=== PATIENT | male | born 1960 | race Caucasian/White ===

== ENCOUNTER → 2018-10-19 08:14 | Outpatient (POV) | payer BC, SELFPAY | PROVIDERS: Visit Provider Dermatology | DX: Z00.00 Encounter for general adult medical examination without abnormal findings (principal) ==

== ENCOUNTER → 2019-02-18 22:29 | Outpatient (CLI) | payer BC, SELFPAY | PROVIDERS: PCP Internal Medicine Adolescent Medicine; Visit Provider Internal Medicine Adolescent Medicine | DX: G47.30 Sleep apnea, unspecified (principal); I10 Essential (primary) hypertension; R06.83 Snoring; E66.9 Obesity, unspecified | CPT/HCPCS: G0399 ==

== ENCOUNTER 2019-02-22 08:30 | Outpatient (RCR) | payer OTHER, BC, SELFPAY | END 2019-02-22 08:35 | disposition home or self-care (01) | LOC: PT 08:30 | PROVIDERS: Visit Provider Orthopaedic Surgery | DX: M25.571 Pain in right ankle and joints of right foot (principal); M19.072 Primary osteoarthritis, left ankle and foot; G89.29 Other chronic pain | CPT/HCPCS: 97010; 97014; 97110; 97112; 97163; 97164; G0283 ==

== ENCOUNTER 2020-06-29 15:07 | Emergency (ER) | payer OTHER, SELFPAY ==
[2020-06-29 15:29] VITALS: BP 141/102; PULSE 83; RESP 18; O2SAT 96; BMI 38.7
--- NOTE | 2020-06-29 15:41 | HMH.EDUTC ---
[facility] [place] [facility] Disposition Clinical Impression: Umbilical hernia Qualifiers: Obstruction and gangrene presence: without obstruction or gangrene Qualified Code(s): K42.9 - Umbilical hernia without obstruction or gangrene Disposition: Home, Self-Care Condition on Discharge: Good Instructions: Hernias: Causes and Treatment Options Additional Instructions: Follow up with the surgeon (Dr. Piper). I put in a referral but you need to call and make yourself an appointment. GO TO THE ER FOR ANY WORSENING ABDOMINAL PAIN OR SYMPTOMS Referrals: Mitch Guzmán MD [Primary Care Provider] - Bashir Piper MD [Staff Physician] - Time of Disposition: 15:47 Medical Decision Making - Medical Records Medical records reviewed: No: I reviewed the patient's medical records. - Yasmani Inquiry Pt receiving controlled substance: No Vital Signs: 06/29/20 15:29 06/29/20 16:00 Temperature 98.1 F Temperature Source Oral Pulse Rate 83 Pulse Rate [Radial] 83 Respiratory Rate 18 18 Blood Pressure 141/102 H Blood Pressure [Right Arm] 141/102 H Blood Pressure Mean [Right Arm] 115 Blood Pressure Source Automatic Cuff Blood Pressure Source [Right Arm] Automatic Cuff Blood Pressure Position Sitting Blood Pressure Position [Right Arm] Sitting 02 Sat by Pulse Oximetry 96 Oxygen Delivery Method Room Air Room Air [facility] HPI - General Stated complaint: Stomach Time Seen by Provider: 06/29/20 15:41 Mode of Arrival: Ambulatory Source of Information: Patient Limitations: No Limitations Description of Symptoms (Recalled from Triage Doc. by RN): wants a referral to surgeon related to possible hernia. Has not been seen for this. HEENT Symptoms (Recalled from RN notes): No Resp Symptoms (Recalled from RN notes): No Skin Symptoms (Recalled from RN notes): No MS Symptoms (Recalled from RN notes): No Functional Status (Recalled from RN notes): wnl - History of Present Illness Provider Complaint: He states that since last Thursday (5 days ago) he had episodes of what he thinks is an umbilical hernia pushing out. He states that it has been easy to reduce the hernia when it pushes out, but he would like to see a surgeon about this. His primary care physician does not do worker's comp (he was at work when he first noticed it) so he was told to come here and get a referral to a surgeon. - Related Data Home Medications Medication Instructions Recorded Confirmed Cetirizine HCl [Zyrtec] 10 mg PO DAILY 04/30/18 04/30/18 oxycodone-acetaminophen 5 mg-325 1 tab PO DAILY PRN 06/07/18 mg tablet Previous Rx's Medication Instructions Recorded diclofenac sodium 1 % topical gel 4 g TOPICAL QID #30 g 06/07/18 Allergies Allergy/AdvReac Type Severity Reaction Status Date / Time dicyclomine [DICYCLOMINE] Allergy Unknown I-RASH Verified 06/07/18 08:34 sulfamethoxazole Allergy Unknown RED HANDS Verified 06/07/18 08:34 [From MAYRA] trimethoprim [From MAYRA] Allergy Unknown RED HANDS Verified 06/07/18 08:34 - Worker's Comp Is this a Worker's Comp case?: No [facility] [place] History - Hepatitis A Screen Drug use history?: No High risk sexual behaviors?: No History of sexually transmitted infection?: No Currently employed?: No Childcare worker?: No Do you have indoor plumbing?: Yes Do you have electricity?: Yes Attestation statement:: This patient has been screened for Hepatitis A risk factors. I have reviewed the patient's past medical history: Yes Medical History: Reports:: Hypertension, Migraine Denies:: Diabetes Mellitus Type 1, Diabetes Mellitus Type 2 Other Medical History: Reports: Sinus Problems, Other Laterality Cases: Bilateral: Tonsillectomy Other Surgeries: Yes: Other Amputation: No Fractures: Yes Comment: Left Ankle Repair ( Apr 2015, Spring 2015) Left Hand (Trigger Release) - Social History Smoking Status: Never smoker Alcohol Intake: never Alcohol Intake Frequency:: holidays/special occasions only Occupatio
[2020-06-29 16:00] VITALS: BP 141/102; PULSE 83; RESP 18; TEMP 36.7; O2SAT 96
== END 2020-06-29 16:01 | disposition home or self-care (01) ==
PROVIDERS: Emergency Provider Nurse Practitioner Family; PCP Internal Medicine Adolescent Medicine
DX: K42.9 Umbilical hernia without obstruction or gangrene (principal); Z88.2 Allergy status to sulfonamides; I10 Essential (primary) hypertension; G43.709 Chronic migraine without aura, not intractable, without status migrainosus; X50.0XXA Overexertion from strenuous movement or load, initial encounter; Y92.69 Other specified industrial and construction area as the place of occurrence of the external cause; Y99.0 Civilian activity done for income or pay
CPT/HCPCS: 99201

== ENCOUNTER → 2020-08-13 11:53 | Outpatient (CLI) | payer OTHER, SELFPAY ==
[2020-08-13 12:45] LABS: Basophils % 0.5 % (0.1-2.0); Eosinophils # 0.2 K/mm3 (0.0-0.4); Hematocrit 46.4 % (42.0-52.0); Hemoglobin 15.3 g/dL (14.1-18.0); Lymphocytes # 1.5 K/mm3 (0.7-4.5); Lymphocytes % 29.8 % (10-50); Mean Corpuscular HGB Conc 32.9 g/dL (31.8-35.4); Mean Corpuscular Hemoglobin 28.9 pg (27.0-31.2); Mean Platelet Volume 7.5 fl (7.4-10.4); Monocytes # 0.3 K/mm3 (0.1-1.0); Monocytes % 5.1 % (1.7-9.3); Neutrophils % 61.5 % (37.0-80.0); Platelet Count 200 K/mm3 (142-424); Red Blood Count 5.27 M/mm3 (4.60-6.20); Red Cell Distribution Width 13.8 % (11.5-17.5); White Blood Count 4.9 K/mm3 (4.8-10.8)
[2020-08-13 14:27] LABS: Coronavirus 19 IgG Antibody Negative (Negative); Coronavirus 19 IgM Antibody Negative (Negative)
== END ==
PROVIDERS: Visit Provider Surgery
DX: Z01.818 Encounter for other preprocedural examination (principal); K42.9 Umbilical hernia without obstruction or gangrene
CPT/HCPCS: 36415; 85025; 86328

== ENCOUNTER 2020-08-15 06:16 | Day surgery (SDC) | payer OTHER, SELFPAY ==
[2020-08-13 12:24] VITALS: BMI 40.3
[2020-08-15] VITALS (15 sets, daily range): BP systolic 118–145; BP diastolic 70–95; PULSE 64–84; RESP 13–21; TEMP 36.3–43; O2SAT 91–95
--- NOTE | 2020-08-15 06:36 | ECG_ITS ---
APPROVED REPORT Exam: Resting ECG HR:83 bpm ECG Measurements Heart Rate 83 AXES AK 150 P 29 QRSd 102 QRS -9 QT 408 T 31 QTc 479 Conclusion Normal sinus rhythm Old inferior changes Abnormal ECG Electronically signed by : Mitch Guzmán, 08/15/2020 07:25:25
--- NOTE | 2020-08-15 06:57 | P.PN_ITS ---
[facility] Anesthesia Checklist - Patient Identification Patient Identification: Arm Band, Verbal (Name & ) - Structural Data Admitted From: Home Planned Operative Procedure/s: umb. hernia Consent for Planned Operative Procedure(s) Verified: Yes Verified Documents: History and Physical - NPO Status Verified Time NPO: 00:00 - Chart Verification Results Verified: CBC, BMP - Additional verifications Patient : No Anesthesia Reactions: No Hx Blood Transfusions: No Blood Transfusion Reaction: No Cephalosporin Allergy: No Previous Colonoscopy: Yes - Cardiovascular Assessment Heart Sounds: S1 & S2 Pulse Strength: Baseline Pulse Rhythm: Regular Peripheral Edema: No - Airway Assessment C-Spine Mobility Assessed: Yes TMJ Mobility Assessed: Yes Dentition: Good Dentition - Neurological Assessment Level of Consciousness: Awake, Alert, Appropriate Hx Seizures: No Numbness or tingling in extremities: No - Anesthesia Plan Anesthesia Risk discussed: Yes Anesthesia Plan: Verified ASA Class: III Anesthesia Type: [facility] History I have reviewed the patient's past medical history: Yes Medical History: Reports:: Hypertension, Migraine Denies:: Cancer, Diabetes Mellitus Type 1, Diabetes Mellitus Type 2, MRSA, Seizures *Have you ever received a pneumonia vaccine?: No *Have you received a flu vaccine this season?: No Other Medical History: Reports: Sinus Problems, Other. Denies: Blood Transfusion Reaction Anesthesia experience/problems:: none Laterality Cases: Left: Other, Bilateral: Tonsillectomy Other Surgeries: Yes: Colonoscopy, Other Amputation: No Fractures: Yes - *Social History Last grade of school completed: High school graduate Smoking Status: Never smoker Alcohol Intake: never Alcohol Intake Frequency:: holidays/special occasions only Substance Use Type: other *Occupational Status:: employed *Travel in the last 8 weeks: None Family Hx:: Cancer, Hypertension
--- NOTE | 2020-08-15 08:16 | HMH.OPNOTE ---
Date of procedure: 08/15/20 Pre-op Diagnosis:: Umbilical hernia Post-op Diagnosis:: Same Procedure performed:: Diagnostic laparoscopy, laparoscopically directed open umbilical hernia repair with placement of medium sized Bard Ventralex mesh Surgeon:: Yakov Wallace MD COFFEE TASTER:: Mitch Chisholm Anesthesia: JUDI Estimated blood loss (mL): 5 Clinical Note:: Patient is a 60-year-old male referred by Mitch Guzmán for umbilical hernia. He works at [employer]. Patient states that about 3 weeks ago he had been performing strenuous lifting and felt a popping sensation. He describes pain in the umbilical area but also had initially some pain in the right and left upper abdomen. He states that he had some discomfort radiating down to the base of the scrotum. He has occasional twinges of pain at the umbilical area with radiation to the base of the scrotum. He had been seen in the urgent treatment center. Plan was for outpatient surgical evaluation. Patient states that some of the diffuse pains except for pain radiating down to the base of the scrotum have resolved. His symptoms seem to be worse when he is bending over and lifting and picking something up. He has noticed protrusion at the umbilical area. Due to the diffuse symptoms and potential for chronic incarceration and due to the lack of ability to determine the exact size of the fascial defect plan was made for laparoscopy with either laparoscopically directed or fully laparoscopic repair. Operative findings:: Patient had a rather small umbilical hernia with fascial defect measuring about 10 to 12 mm. There is no evidence of any chronically incarcerated tissues. Operative note:: . He is given preoperative intravenous antibiotics. He was placed in the supine position. General anesthesia was induced via endotracheal tube. Abdomen was prepped and draped in the standard surgical fashion. 5 mm left subcostal incision and optical trocar was inserted. CO2 pneumoperitoneum was achieved to 15 mmHg. Intraperitoneal contents were visualized. He was noted to have a small fascial defect measuring 10 to 12 mm somewhat towards the superior aspect of the umbilicus. There were no contained tissues such as incarcerated omentum. Decision was made for placement of Ventralex mesh. Due to the fact that the small fascial defect was somewhat towards the upper aspect of the umbilicus supraumbilical incision was made. Dissection was carried down through subcutaneous tissues down to the fascial defect. Fascial defect measured about 10 to 12 mm. Fascial defect was cleaned free and extraneous tissue of fat and peritoneum was dissected free using electrocautery and sent as a hernia sac. 11 mm optical trocar was then inserted through the fascial defect. Medium sized Bard Ventralex mesh was inserted through the trocar. Trocar was then removed. Mesh was observed and placed laparoscopically. The tails of the mesh were sutured superiorly and inferiorly to the edges of the fascial defect with 2-0 PDS suture. The tails of the mesh were then cut flush with the fascia. Fascial defect was closed over the mesh with a couple of 0 Ethibond sutures. Laparoscopy was then performed which revealed good positioning of the mesh over the defect with appreciable fascial overlap. There was good hemostasis. CO2 pneumoperitoneum was evacuated and trocar was removed. Subdermal tissues at the supraumbilical incision were closed with interrupted 2-0 Vicryl sutures. Skin some local anesthetic was infiltrated. Skin incisions were closed with 4-0 Monocryl in a subcuticular fashion. Steri-Strips and dressings were applied. Condition: stable Disposition: PACU Specimens:: Hernia sac Complications:: None
--- NOTE | 2020-08-15 08:24 | P.PN_ITS ---
[facility] Anesthesia Record Part I Intake, IV Amount: 500 Estimated blood loss (mL): 5 Urine output (mL): 0 Blood Products used (#): none Blood Pressure: 128/78 SaO2: 95 Pulse Rate: 79 Respiratory Rate: 20 Temperature: 98.0 F Patient is:: Awake, Nasal O2, Stable Stable to PACU at:: 08:21
--- NOTE | 2020-08-15 09:36 | HMH.ANESII ---
[facility] Anesthesia Record Part II Discharge Time: 08:51 Destination: Surgical Day Care (OP Surgery) PACU nurse assessment reviewed?: Yes Patient Condition:: Good Anesthesia Complications:: None Swallowing reflex intact?: Yes Cyanosis?: No Blood Pressure: 133/75 Pulse Rate: 70 Temperature: 97.4 F Mental Status: Alert & Oriented Pain level:: 10 Nausea and/or vomitting:: None Intake, IV Amount: 50
== END 2020-08-15 09:55 | disposition home or self-care (01) ==
LOC: OR 06:18
PROVIDERS: PCP Internal Medicine Adolescent Medicine; Visit Provider Surgery
PROC: 0WQF4ZZ Repair Abdominal Wall, Percutaneous Endoscopic Approach (ICD-10-PCS; CPT 49585; principal; 2020-08-15 07:30)
DX: K42.9 Umbilical hernia without obstruction or gangrene (principal); I10 Essential (primary) hypertension; G43.909 Migraine, unspecified, not intractable, without status migrainosus; Z80.9 Family history of malignant neoplasm, unspecified; Z82.49 Family history of ischemic heart disease and other diseases of the circulatory system; Z88.8 Allergy status to other drugs, medicaments and biological substances
CPT/HCPCS: 49585; 93005; 96374; C1781; J2405; J2710

== ENCOUNTER 2020-11-10 16:41 | Emergency (ER) | payer BC, SELFPAY ==
[2020-11-10 17:05] VITALS: BP 127/85; PULSE 68; RESP 14; TEMP 36.3; O2SAT 97; BMI 40.3
--- NOTE | 2020-11-10 17:32 | HMH.EDUTC ---
[facility] [place] Clinical Impression: Dizziness, Unsteady gait, Hand numbness Disposition: Still a Patient Condition on Discharge: Fair Referrals: Mitch Guzmán MD [Primary Care Provider] - Time of Disposition: 17:59 Medical Decision Making - Medical Records Medical records reviewed: No: I reviewed the patient's medical records. - Yasmani Inquiry Pt receiving controlled substance: No Vital Signs: 11/10/20 17:05 Temperature 97.4 F L Temperature Source Oral Pulse Rate [Right Brachial] 68 Respiratory Rate 14 Blood Pressure [Right Arm] 127/85 Blood Pressure Mean [Right Arm] 99 Blood Pressure Source [Right Arm] Automatic Cuff Blood Pressure Position [Right Arm] Sitting 02 Sat by Pulse Oximetry 97 Oxygen Delivery Method Room Air Medical Decision Narrative: He was transferred to the er due to his symptoms. [facility] HPI - General Stated complaint: dizzy, left leg weakness Time Seen by Provider: 11/10/20 17:25 Mode of Arrival: Ambulatory Source of Information: Patient Limitations: No Limitations Description of Symptoms (Recalled from Triage Doc. by RN): PATIENT C/O DIZZINESS X 2-3 DAYS AND RIGHT HAND NUMBNESS. ALSO STATES HE FEELS LIKE HIS LEG IS NOT WORKING RIGHT; HE SAYS HE WENT TO STEP OVER SOMETHING AND UNKNOWINGLY DID NOT LIFT HIS LEG HIGH ENOUGH TO CLEAR IT. DENIES NUMBNESS IN HIS LEG, BUT DOES STATE IT FEELS LIKE IT WANTS TO GIVE OUT. HE DOES REPORT HX OR AN ARTERY PROBLEM IN HIS RIGHT HAND AND HX OF LOWER BACK INJURY. HEENT Symptoms (Recalled from RN notes): No Resp Symptoms (Recalled from RN notes): No Skin Symptoms (Recalled from RN notes): No MS Symptoms (Recalled from RN notes): No Functional Status (Recalled from RN notes): WNL - History of Present Illness Provider Complaint: He states that for the past 2 to 3 days he has felt like his left leg has not been working right. He has had trouble with tripping over stuff because his foot is not coming up high enough. He states that he has never had this issue before. He has also had some dizziness. He states that in the past he had ear infections that have made him feel dizzy like this, but his ears have not been hurting. - Related Data Home Medications Medication Instructions Recorded Confirmed Cetirizine HCl [Zyrtec] 10 mg PO DAILY 04/30/18 09/10/20 Previous Rx's Medication Instructions Recorded Meclizine HCl [Antivert 25mg 25 mg PO TID PRN #15 tab 11/10/20 tablet] Allergies Allergy/AdvReac Type Severity Reaction Status Date / Time dicyclomine [DICYCLOMINE] Allergy Unknown I-RASH Verified 09/10/20 09:29 sulfamethoxazole Allergy Unknown RED HANDS Verified 09/10/20 09:29 [From ] trimethoprim [From ] Allergy Unknown RED HANDS Verified 09/10/20 09:29 - Worker's Comp Is this a Worker's Comp case?: No [facility] History - Hepatitis A Screen Drug use history?: No High risk sexual behaviors?: No History of sexually transmitted infection?: No Currently employed?: No Childcare worker?: No Do you have indoor plumbing?: Yes Do you have electricity?: Yes Attestation statement:: This patient has been screened for Hepatitis A risk factors. I have reviewed the patient's past medical history: Yes Medical History: Reports:: Hypertension, Migraine Denies:: Cancer, Diabetes Mellitus Type 1, Diabetes Mellitus Type 2, MRSA, Seizures Other Medical History: Reports: Sinus Problems, Other. Denies: Blood Transfusion Reaction Laterality Cases: Left: Other, Bilateral: Tonsillectomy Other Surgeries: Yes: Colonoscopy, Hernia Repair, Other Amputation: No Fractures: Yes Comment: Left Ankle Repair ( Apr 2015, Spring 2015) Left Hand (Trigger Release) - Social History Smoking Status: Never smoker Alcohol Intake: never Alcohol Intake Frequency:: holidays/special occasions only Substance Use Type: other Occupational Status: other Family Hx:: Cancer, Hypertension ROS Obtained: Yes All systems reviewed & no additional complaints
--- NOTE | 2020-11-10 17:33 | PC.NURSE ---
PATIENT SENT TO ER PER LEXUS HULL APRN FOR FURTHER EVALUATION. REPORT GIVEN TO Adalberto GAMEZ RN
--- NOTE | 2020-11-10 17:48 | HMH.EDGENADL ---
ED Disposition Clinical Impression: Benign positional vertigo Qualifiers: Laterality: unspecified laterality Qualified Code(s): H81.10 - Benign paroxysmal vertigo, unspecified ear Radiculopathy Qualifiers: Spinal region: lumbar Qualified Code(s): M54.16 - Radiculopathy, lumbar region Disposition: Home, Self-Care Condition on Discharge: Good Instructions: DI for Vertigo, DI for Lumbar Radiculopathy Prescriptions: Meclizine HCl [Antivert 25mg tablet] 25 mg PO TID PRN #15 tab PRN Reason: Vertigo Prescription Printed Referrals: Mitch Guzmán MD [Primary Care Provider] - 3 days - Critical Care Critical Care Time: No Attestation: On 11/10/20, the high probability of a clinically significant, sudden or life threatening deterioration of the following system(s) required my full and direct attention, intervention and personal management. The time I documented below is in addition to time spent performing reported procedures but includes the following listed in this critical care notation. Medical Decision Making - Medical Records Medical records reviewed: Yes: I reviewed the patient's medical records. - Yasmani Inquiry Pt receiving controlled substance: No Vital Signs: 11/10/20 17:05 Temperature 97.4 F L Temperature Source Oral Pulse Rate [Right Brachial] 68 Respiratory Rate 14 Blood Pressure [Right Arm] 127/85 Blood Pressure Mean [Right Arm] 99 Blood Pressure Source [Right Arm] Automatic Cuff Blood Pressure Position [Right Arm] Sitting 02 Sat by Pulse Oximetry 97 Oxygen Delivery Method Room Air Medical Decision Narrative: Patient with peripheral cause of vertigo, unlikely to be CVA, subarachnoid hemorrhage, acute intracranial catastrophe. Symptoms are only present with movement. He is able to ambulate with a non-ataxic gait in the ER. Neurologic exam benign here. His leg problems appear to be more chronic and progressive in nature related to injury and not related to his positional vertigo. Will prescribe meclizine advise follow-up with PCP, ENT if symptoms are not improving over the next several days. Advise follow-up with spine surgeon concerning his chronic and progressive back pain and worsening symptoms with both lower extremities. He has denied any symptomology consistent with cauda equina. General Adult HPI - General Stated complaint: dizzy, left leg weakness Time Seen by Provider: 11/10/20 17:25 Mode of Arrival: Ambulatory Source of Information: Patient Limitations: No Limitations Description of Symptoms (Recalled from ER Triage Doc. by RN): PATIENT C/O DIZZINESS X 2-3 DAYS AND RIGHT HAND NUMBNESS. ALSO STATES HE FEELS LIKE HIS LEG IS NOT WORKING RIGHT; HE SAYS HE WENT TO STEP OVER SOMETHING AND UNKNOWINGLY DID NOT LIFT HIS LEG HIGH ENOUGH TO CLEAR IT. DENIES NUMBNESS IN HIS LEG, BUT DOES STATE IT FEELS LIKE IT WANTS TO GIVE OUT. HE DOES REPORT HX OR AN ARTERY PROBLEM IN HIS RIGHT HAND AND HX OF LOWER BACK INJURY. - History of Present Illness HPI narrative: This is a 60-year-old male with a past medical history significant for hypertension who presents to the emergency department for positional dizziness that he states started happening today. Triage note from [facility] says 2 to 3 days, but patient only reports that this has been happening today. He has had similar symptoms in the past many times, but this time seemed more severe. Today he noticed when he was bending over to pick something up when he stood up he became dizzy. He states if he sits still the symptoms are gone, whenever he tries to move quickly however the symptoms of vertigo recur. He has a long history of sinus problems and has been told that this has caused his vertigo in the past. He complained of right hand numbness at triage and [facility], but does not complain of this to me. He also states that he has felt several times a day like his left leg was going to give out . He has a remote history of injury to this left leg with a fract
[2020-11-10 17:51] VITALS: BP 137/95; PULSE 72; RESP 16; TEMP 36.6; O2SAT 96; BMI 41.3
[2020-11-10 18:13] VITALS: BP 136/90; PULSE 70; RESP 16; TEMP 36.6; O2SAT 98
== END 2020-11-10 18:14 | disposition still patient (30) ==
LOC: UTC 16:49 → ER 17:36
PROVIDERS: Emergency Provider Emergency Medicine; PCP Internal Medicine Adolescent Medicine
DX: H81.10 Benign paroxysmal vertigo, unspecified ear (principal); M54.10 Radiculopathy, site unspecified; I10 Essential (primary) hypertension; Z88.2 Allergy status to sulfonamides
CPT/HCPCS: 99281

== ENCOUNTER → 2020-11-19 14:19 | Outpatient (CLI) | payer BC, SELFPAY ==
--- NOTE | 2020-11-19 14:22 | MR_ITS ---
PROCEDURE: MR LUMBAR SPINE WO CON CLINICAL INDICATION: HEAVY SENSATION OF LOWER EXTREMITY, RIGHT LEG PAIN Was unable to move leg properly x1wk ago. Rt leg pain. Lbp. No injury. No prior. COMPARISON: No exams were available for comparison TECHNIQUE: Standard multiplanar multiecho sequences are performed without contrast. 3-D MIP and myelographic images are also rendered and reviewed FINDINGS: There is normal alignment. The spinal cord ends at the L1-L2 level. L1-L2: Unremarkable. L2-L3: Mild degenerative disc disease with small anterior osteophytes. Increased T1 and T2 signal involves the anterior inferior aspect of L2 suggesting lipomatosis involvement. L3-L4: Unremarkable. L4-5: Unremarkable. L5-S1: Mild facet hypertrophic change. No extruded herniated disc or canal stenosis. IMPRESSION: 1. Mild degenerative changes. 2. No disc herniation or canal stenosis. Dictated by: Bin Colunga MD 11/20/2020 12:28 Bin Colunga MD in [place] 11/20/2020 12:28
== END ==
PROVIDERS: PCP Internal Medicine Adolescent Medicine; Visit Provider Internal Medicine Adolescent Medicine
DX: M79.604 Pain in right leg (principal); R29.898 Other symptoms and signs involving the musculoskeletal system
CPT/HCPCS: 72148; 76376

== ENCOUNTER → 2020-11-27 13:24 | Outpatient (POV) | payer BC, SELFPAY | PROVIDERS: Visit Provider Dermatology | DX: Z00.00 Encounter for general adult medical examination without abnormal findings (principal) ==

== ENCOUNTER 2021-06-06 12:23 | Emergency (ER) | payer BC, SELFPAY ==
[2021-06-06 14:02] VITALS: BP 00/00; PULSE 0; RESP 0; TEMP -17.7; TEMP 0
== END 2021-06-06 14:03 | disposition left against medical advice (07) ==
LOC: UTC 12:25
PROVIDERS: Emergency Provider Nurse Practitioner; PCP Internal Medicine Adolescent Medicine
DX: Z53.21 Procedure and treatment not carried out due to patient leaving prior to being seen by health care provider (principal)

== ENCOUNTER → 2021-06-08 11:50 | Outpatient (CLI) | payer BC, SELFPAY | PROVIDERS: Visit Provider Nurse Practitioner Family | DX: Z20.822 Contact with and (suspected) exposure to COVID-19 (principal); U07.1 COVID-19 | CPT/HCPCS: C9803; U0003; U0005 ==

== ENCOUNTER 2021-09-10 19:23 | Emergency (ER) | payer BC, SELFPAY ==
[2021-09-10 20:40] VITALS: BP 148/96; PULSE 95; RESP 16; TEMP 37.1; O2SAT 98; BMI 40.8
[2021-09-10 20:46] LABS: UTC Strep Screen (Rapid) Negative (Negative)
--- NOTE | 2021-09-10 21:26 | HMH.EDUTC ---
[facility] [place] Disposition Clinical Impression: Viral syndrome Acute bronchitis Qualifiers: Bronchitis organism: unspecified organism Qualified Code(s): J20.9 - Acute bronchitis, unspecified Disposition: Home, Self-Care Condition on Discharge: Good Instructions: Acute Bronchitis, DI for Acute Bronchitis, DI for COVID-19 (Suspected or Confirmed ), Preventing the Spread of Coronavirus Discharge Instructions Additional Instructions: Drink plenty of fluids. Take tylenol or ibuprofen for pain or fever. Take the medications as directed. Follow up with your regular doctor. GO TO THE ER FOR ANY WORSENING SYMPTOMS Quarantine until you know the results of your covid-19 test. If it is positive, the health department should call you and give you further instructions about your length of Quarantine and other things. Notify your school or workplace of your results and follow their instructions regarding return to work/school. The cough medication (promethazine dm) will make you drowsy, so don't drive or operate heavy machinery after taking it. Prescriptions: Promethazine/Dextromethorphan [Promethazine-Dm Syrup] 5 ml PO Q6HP PRN #240 ml PRN Reason: Cough Transmission Status: Received by [id number] Amoxicillin/Potassium Clav [Augmentin 875-125 Tablet] 1 tab PO Q12H 10 Days #20 tab Transmission Status: Received by [facility] methylPREDNISolone [Medrol] 4 mg PO DIRECTED 6 Days #21 packet Transmission Status: Received by [id number] guaiFENesin [Mucinex 600mg tablet] 1 - 2 tab PO BIDP PRN #30 tab PRN Reason: Congestion Transmission Status: Received by [id number] Referrals: Mitch Guzmán MD [Primary Care Provider] - Forms: Work/School Release Time of Disposition: 22:17 Medical Decision Making - Medical Records Medical records reviewed: No: I reviewed the patient's medical records. - Yasmani Inquiry Pt receiving controlled substance: No Vital Signs: 09/10/21 20:40 09/10/21 22:42 Temperature 98.7 F 98.7 F Temperature Source Oral Pulse Rate 95 H Pulse Rate [Left] 95 H Respiratory Rate 16 16 Blood Pressure 148/96 H Blood Pressure [Right Arm] 148/96 H Blood Pressure Mean [Right Arm] 113 02 Sat by Pulse Oximetry 98 - Lab Data Lab Results 09/10/21 20:39: Strep Scn Rapid Clinic Negative Orders (Tests/Meds): ED MEDICATIONS Discontinued Medications Generic Name Dose Route Start Last Admin Trade Name Cely PRN Reason Stop Dose Admin Ceftriaxone Sodium 1 gm 09/10/21 22:10 09/10/21 22:39 Ceftriaxone 1gm Vial IM 09/10/21 22:11 1 gm ONCE ONE Administration Lidocaine HCl 0 ml 09/10/21 22:10 09/10/21 22:39 Lidocaine 1% 5ml Pf Vial IM 09/10/21 22:11 2 ml ONCE ONE Administration Methylprednisolone Sodium Succinate 125 mg 09/10/21 22:10 09/10/21 22:39 Methylprednisolone Sod Succ 125mg Vial IM 09/10/21 22:11 125 mg ONCE ONE Administration ORDERS Category Date Time Status Chest XR 2 view (NOT portable) [XR chest 2V] Stat Exams 09/10/21 21:37 Taken Full Resp Panel w/COVID ([facility]) Routine Lab 09/10/21 22:30 Received Strep Screen Confirmation Routine Micro 09/10/21 20:39 Received [facility] UTC HPI - General Stated complaint: cold Time Seen by Provider: 09/10/21 21:27 Mode of Arrival: Ambulatory Source of Information: Patient Limitations: No Limitations Description of Symptoms (Recalled from Triage Doc. by RN): pt c/o a sore throat, productive cough, lethargy and dizziness. ongoing x3 days. HEENT Symptoms (Recalled from RN notes): Yes (sore throat) Resp Symptoms (Recalled from RN notes): Yes (productive cough) Skin Symptoms (Recalled from RN notes): No MS Symptoms (Recalled from RN notes): No Functional Status (Recalled from RN notes): wnl - History of Present Illness Provider Complaint: He states that he has had fever, chills, chest congestion and a sore throat for the past 3 days. His is also sick. He den
--- NOTE | 2021-09-10 21:37 | XR_ITS ---
PROCEDURE INFORMATION: Exam: XR Chest Exam date and time: 09/10/2021 9:37 PM Age: 61 years old Clinical indication: Cough and other: Congestion; Patient HX: Cough and congestion. ; Additional info: Cough, congestion TECHNIQUE: Imaging protocol: XR of the chest. Views: 2 views. COMPARISON: CR CXR CHEST(2 VIEWS-NOT PORTABLE) 05/20/2016 9:08 AM FINDINGS: Lungs: Prominent central bronchovascular markings, suggesting bronchitis. There are minimal linear interstitial infiltrates within both perihilar regions. 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 Pleural spaces: Unremarkable. No pleural effusion. No pneumothorax. Heart/Mediastinum: No cardiomegaly. There is mild tortuosity of the thoracic aorta. Bones/joints: Unremarkable. IMPRESSION: 1. Bronchitis is suspect. 2. 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 3. No evidence of pulmonary vascular congestion. The heart is normal in size.
[2021-09-10 22:42] VITALS: BP 148/96; PULSE 95; RESP 16; TEMP 37.1
[2021-09-10 22:44] LABS: Adenovirus,PCR Not Detected (NotDetected); Bordetella Pertussis Not Detected (NotDetected); Chlamydophila Pneumoniae, PCR Not Detected (NotDetected); Coronavirus 19, PCR Not Detected (NotDetected); Coronavirus 229E Not Detected (NotDetected); Coronavirus NL63 Not Detected (NotDetected); Coronavirus OC43 Not Detected (NotDetected); Coronovirus HKU1,PCR Not Detected (NotDetected); Influenza A, PCR Not Detected (NotDetected); Influenza AH1, 2009 Not Detected (NotDetected); Influenza AH1, PCR Not Detected (NotDetected); Influenza AH3,PCR Not Detected (NotDetected); Influenza B, PCR Not Detected (NotDetected); Mycoplasma Pneumoniae, PCR Not Detected (NotDetected); Parainfluenza 1, PCR Not Detected (NotDetected); Parainfluenza 2, PCR Not Detected (NotDetected); Parainfluenza 3, PCR Not Detected (NotDetected); Parainfluenza 4, PCR Not Detected (NotDetected); Respiratory Syncytial Virus Not Detected (NotDetected); Rhinovirus/Enterovirus Not Detected (NotDetected)
[2021-09-11 03:49] LABS: Human Metapneumovirus Detected (NotDetected)
== END 2021-09-10 22:48 | disposition home or self-care (01) ==
PROVIDERS: Emergency Provider Nurse Practitioner Family; PCP Internal Medicine Adolescent Medicine
DX: J20.9 Acute bronchitis, unspecified (principal); B34.9 Viral infection, unspecified
CPT/HCPCS: 71046; 87581; 87632; 87798; 87880; 96372; 99203; C9803; G0463; U0003; U0005

== ENCOUNTER 2022-08-13 10:15 | Emergency (ER) | payer BC, SELFPAY ==
[2022-08-13 11:20] VITALS: BP 141/96; PULSE 85; RESP 18; TEMP 36.8; O2SAT 98; BMI 37.5
--- NOTE | 2022-08-13 11:43 | EXP.UTC ---
Discharge Plan Disposition Patient Disposition: Home, Self-Care Condition: Good Prescriptions Prescriptions: No Action amlodipine 10 mg tablet 10 mg PO DAILY celecoxib 200 mg capsule 200 mg PO Label Comments: TAKE 1 CAPSULE BY MOUTH TWICE DAILY methocarbamol 500 mg tablet 500 mg PO meclizine 25 MG tablet 25 mg PO TID PRN (Reason: Vertigo) Qty: 15 0RF guaifenesin 600 MG tablet extended release 12hr 1 - 2 tab PO BIDP PRN (Reason: Congestion) Qty: 30 0RF cetirizine 10 MG capsule 10 mg PO DAILY Referrals Follow up/Referrals: Mitch Guzmán MD [Primary Care Provider] - See instructions Activity Restrictions/Add. Instructions Additional Instructions/Restrictions: Follow up with your Family Doctor if needed Straight to ER if any life threatening symptoms Return if needed Clinical Impressions Clinical Impression: Generalized body aches Stand Alone Forms Stand Alone Forms: Work/School Release Discharge ED Provider: Venessa Pruitt [facility] HPI General Stated complaint: Congestion, nausea, fatigue, BRYAN Mode of Arrival: Ambulatory Source of Information: Patient Limitations: No Limitations Time Seen by Provider: 08/13/22 11:43 Description of Symptoms (Recalled from Triage Doc. by RN): PATIENT C/O BODY ACHES YESTERDAY. HE STATES THAT IS A SIDE EFFECT OF A MEDICATION HE RECENTLY STARTED HEENT Symptoms (Recalled from RN notes): No Resp Symptoms (Recalled from RN notes): No Skin Symptoms (Recalled from RN notes): No MS Symptoms (Recalled from RN notes): No Functional Status (Recalled from RN notes): WNL History of Present Illness Provider Complaint: Patient states that he started a new medication and yesterday he was feeling achy and at first thought he may be getting the flu but as the day went on he felt better States that he started looking at the side effects of the new medication he started and body aches was one of them State that he is not having any fever, chills and body aches today but he missed work yeserdya and needed to get a note Related Data Home Medications Medication Instructions Recorded Confirmed cetirizine 10 mg capsule 10 mg PO DAILY ALLERGIES 04/30/18 06/17/22 amlodipine 10 mg tablet 10 mg PO DAILY 06/08/21 06/17/22 celecoxib 200 mg capsule 200 mg PO 04/15/22 06/17/22 methocarbamol 500 mg tablet 500 mg PO 04/15/22 06/17/22 Previous Rx's Medication Instructions Recorded meclizine 25 mg tablet 25 mg PO TID PRN Vertigo #15 tabs 11/10/20 guaifenesin 600 mg tablet, 1 - 2 tab PO BIDP PRN Congestion 09/10/21 extended release 12 hr #30 tabs Allergies Allergy/AdvReac Type Severity Reaction Status Date / Time dicyclomine [DICYCLOMINE] Allergy Unknown I-RASH Verified 06/17/22 09:37 sulfamethoxazole Allergy Unknown RED HANDS Verified 06/17/22 09:37 [From ] trimethoprim [From ] Allergy Unknown RED HANDS Verified 06/17/22 09:37 Worker's Comp Is this a Worker's Comp case?: No PFSH PFSH Medical History (Updated 08/13/22 @ 11:47 by Venessa Pruitt APRN) BPH (benign prostatic hyperplasia) HTN (hypertension), benign Hyperlipidemia Migraine Surgical History Hx of tonsillectomy Family History (Updated 06/17/22 @ 09:39 by Justa Trent CMA) Other Cancer HTN (hypertension), benign Social History (Updated 08/13/22 @ 11:36 by China Duffy RN) Smoking Status: Never smoker alcohol intake: never substance use type: other current occupational status: employed and other Travel in the last 8 weeks: None caffeine: Yes ROS Obtained: Yes All systems reviewed & no additional complaints except as documented and Yes Systems reviewed as appropriate & no additional complaints except as documented Constitutional Constitutional: Reports system reviewed and no additional complaints, except as documented, Reports as per HPI and Reports body ache Eyes Eyes: Re
[2022-08-13 11:56] VITALS: BP 141/96; PULSE 85; RESP 18; TEMP 36.8; O2SAT 98
== END 2022-08-13 11:57 | disposition home or self-care (01) ==
PROVIDERS: Emergency Provider Nurse Practitioner; PCP Internal Medicine Adolescent Medicine
DX: M79.10 Myalgia, unspecified site (principal); R11.0 Nausea; R53.82 Chronic fatigue, unspecified; I10 Essential (primary) hypertension; E78.5 Hyperlipidemia, unspecified; N40.0 Benign prostatic hyperplasia without lower urinary tract symptoms; G43.909 Migraine, unspecified, not intractable, without status migrainosus; Z88.8 Allergy status to other drugs, medicaments and biological substances; Z82.49 Family history of ischemic heart disease and other diseases of the circulatory system; Z80.9 Family history of malignant neoplasm, unspecified
CPT/HCPCS: 99213; G0463

== ENCOUNTER 2023-04-23 12:39 | Emergency (ER) | payer BC, SELFPAY ==
--- NOTE | 2023-04-23 13:09 | EXP.UTC ---
Discharge Plan Disposition Patient Disposition: Home, Self-Care Condition: Good Prescriptions Prescriptions: New fsrnieragyahmpn-emuyluvdd-DX [Bromfed DM] 2-30-10 mg/5 mL syrup 10 ml PO Q6H PRN (Reason: cold symptoms) Qty: 120 0RF No Action amlodipine 10 mg tablet 10 mg PO .COMPLEX Rx Instructions: 10 mg orally qod; celecoxib 200 mg capsule 200 mg PO BID PRN Patient Comments: TAKE 1 CAPSULE BY MOUTH TWICE DAILY methocarbamol 500 mg tablet 500 mg PO PRN cetirizine 10 MG capsule 10 mg PO DAILY Referrals Follow up/Referrals: Mitch Guzmán MD [Primary Care Provider] - See instructions Clinical Impressions Clinical Impression: Upper respiratory tract infection Qualifiers: URI type: unspecified viral URI Qualified Code(s): J06.9 - Acute upper respiratory infection, unspecified Instructions Patient Instructions: DI for Viral Upper Respiratory Infection -- Adult Discharge ED Provider: Crissy Thakur [facility] General Stated complaint: sore throat,congestion,cough,headache Time Seen by Provider: 04/23/23 13:08 History of Present Illness Provider Complaint: Pt states that his was sick first with similar symptoms and now he and his son and his son's girlfriend have the same symptoms. He states that he has had a strong cough with green drainage and feels like he coughed so hard he had blood in his sputum. He reports thick nasal drainage, body aches, sore throat, and fatigue. He states that he felt so bad last night that he left work during the middle of his shift. Related Data Home Medications Medication Instructions Recorded Confirmed cetirizine 10 mg capsule 10 mg PO DAILY ALLERGIES 04/30/18 09/09/22 amlodipine 10 mg tablet 10 mg PO .COMPLEX 12/09/22 celecoxib 200 mg capsule 200 mg PO BID PRN 12/09/22 methocarbamol 500 mg tablet 500 mg PO PRN 12/09/22 Previous Rx's Medication Instructions Recorded gkecsdycswlgbiz-jwkvwhmtbdjbuwc-OM 10 ml PO Q6H PRN cold symptoms 04/23/23 2 mg-30 mg-10 mg/5 mL oral syrup #120 mL (Bromfed DM) Allergies Allergy/AdvReac Type Severity Reaction Status Date / Time dicyclomine [DICYCLOMINE] Allergy Unknown I-RASH Verified 03/14/23 09:18 sulfamethoxazole Allergy Unknown RED HANDS Verified 12/09/22 09:18 [From SEPTRA] trimethoprim [From SEPTRA] Allergy Unknown RED HANDS Verified 12/09/22 09:18 [facility] Disclaimer: The information contained in this section may have been updated after the patient was seen, as this information can be updated by other users. Medical History BPH (benign prostatic hyperplasia) HTN (hypertension), benign Hyperlipidemia Migraine Surgical History Hx of tonsillectomy Family History Other Cancer HTN (hypertension), benign Social History Smoking Status: Never smoker alcohol intake: never substance use type: other current occupational status: employed and other Travel in the last 8 weeks: None caffeine: Yes ROS Obtained: Yes All systems reviewed & no additional complaints except as documented Constitutional Constitutional: Reports system reviewed and no additional complaints, except as documented, Reports body ache, Reports fatigue, Reports headache(s) and Reports malaise Eyes Eyes: Reports system reviewed and no additional complaints, except as documented ENT Ears, Nose, Mouth, and Throat: Reports system reviewed and no additional complaints, except as documented, Reports headache(s), Reports nasal congestion, Reports nasal discharge, Reports odynophagia, Reports post nasal drip, Reports sinus pressure and Reports sore throat Cardiovascular Cardiovascular: Reports system reviewed and no additional complaints, except as docume
[2023-04-23 13:10] VITALS: BP 127/85; PULSE 84; RESP 18; TEMP 36.8; O2SAT 98; BMI 33.5
[2023-04-23 13:46] LABS: UTC Strep Screen (Rapid) Negative (Negative)
[2023-04-23 13:47] LABS: UTC Influenza A Antigen Negative (Negative)
[2023-04-23 13:48] LABS: UTC Influenza B Antigen Negative (Negative)
[2023-04-23 13:56] VITALS: BP 127/85; PULSE 84; RESP 18; TEMP 36.8; O2SAT 98
== END 2023-04-23 14:13 | disposition home or self-care (01) ==
PROVIDERS: Emergency Provider Nurse Practitioner Family; PCP Internal Medicine Adolescent Medicine
DX: U07.1 COVID-19 (principal); R05.9 Cough, unspecified; R53.83 Other fatigue; I10 Essential (primary) hypertension; E78.5 Hyperlipidemia, unspecified
CPT/HCPCS: 87804; 87880; 99212; 99214; G0463

== ENCOUNTER → 2023-09-24 08:48 | Outpatient (CLI) | payer BC, SELFPAY ==
--- NOTE | 2023-09-24 08:50 | CA_ITS ---
APPROVED REPORT EXAM: Comprehensive 2D, Doppler, and color-flow Echocardiogram Front Office Assistant: Suni Osman CRT Ht: 5 ft 6 in Wt: 242lbs BSA: 2.17 BP: 135/84 mmHg Indications: Shortness of Breath, Hyperlipidemia, Hypertension/HDD 2D Dimensions LA Volume 31.70 mL LA Volume Index 14.30 mL/m2 (M/F) 16-34 M-Mode Dimensions RVDd 3.28 cm (0.9-2.6) LA Diam 4.06 cm (1.9-4.0) LVDd 4.32 cm (3.5-5.7) LVDs 2.84 cm (3.5-5.7) IVSd 2.44 cm (0.6-1.1) PWd 0.76 cm (0.6-1.1) EF (Teich) 63.60% FS 34.30% EDV (Teich) 84.00 mL TAPSE 2.30 (<1.7) ESV (Teich) 30.60 mL LV Diastology E Decel Time 220 (160-240 msec) E/A Ratio 0.79 MED A' 11.50 cm/s LAT A' 14.40 cm/s Mitral Valve MV E Max Alex. 75.0 (40-130 cm/s) MV A Velocity 95.0 (40-130 cm/s) E/A Ratio 0.79 MV PHT 64.0 ms Pulmonary Valve PV Peak Velocity 110.0 (50-150 cm/s) Tricuspid Valve TR P. Velocity 228.00 cm/s RAP Estimate 10.00 mmHg RVSP 30.90 mmHg Left Ventricle The left ventricle is normal size. The left ventricular systolic function is normal. The left ventricular ejection fraction is within the normal range. There is increased LV wall thickness. There is normal LV segmental wall motion. Transmitral Doppler flow pattern suggests impaired LV relaxation. LVEF is 60%. Right Ventricle The right ventricle is normal size. The right ventricular systolic function is normal. Atria The left atrium size is normal. The right atrium size is normal. The interatrial septum is not well visualized. Aortic Valve The aortic valve opens well. There is no aortic valvular stenosis. No aortic regurgitation is present. Mitral Valve The mitral valve is normal in structure. No evidence of mitral valve stenosis. Trace mitral regurgitation. Tricuspid Valve The tricuspid valve leaflets are thin and pliable. Trace tricuspid regurgitation. Pulmonic Valve The pulmonary valve is normal in structure. Trace pulmonic regurgitation. Great Vessels The aortic root is normal in size. The ascending aort is mildly dilated, measuring 4.0 cm in diameter. IVC is normal in size and collapses >50% with inspiration. Pericardium There is no pericardial effusion. An anechoic mass is incidentally noted in the liver measuring 6.5 cm in diameter. This most likely represents a hepatic cyst. Other Information Study Quality: Technically Difficult Conclusion Technically difficult study due to poor accoustic windows. Normal biventricular systolic function. No significant valvular stenosis or regurgitation. Mild dilated ascending aorta, measuring 4.0 cm in diameter. An anechoic mass is incidentally noted in the liver measuring 6.5 cm in diameter. This most likely represents a hepatic cyst. Electronically signed by : Chary Almeida MD 09/26/2023 23:01:05
== END ==
LOC: RT 08:48
PROVIDERS: PCP Internal Medicine Adolescent Medicine; Visit Provider Internal Medicine Adolescent Medicine
DX: R06.00 Dyspnea, unspecified (principal); R94.31 Abnormal electrocardiogram [ECG] [EKG]
CPT/HCPCS: 93306

== ENCOUNTER 2024-01-15 14:00 | Outpatient (RCR) | payer OTHER, SELFPAY | END 2024-01-15 14:05 | disposition home or self-care (01) | LOC: OT 14:00 | PROVIDERS: Visit Provider Orthopaedic Surgery | DX: M25.511 Pain in right shoulder (principal); M75.121 Complete rotator cuff tear or rupture of right shoulder, not specified as traumatic | CPT/HCPCS: 97010; 97014; 97110; 97140; 97164; 97166; G0283 ==

== ENCOUNTER 2025-06-12 10:36 | Outpatient (CLI) | payer BC, SELFPAY ==
--- OUTSIDE RECORDS SUMMARY | 2025-06-12 10:41 | XMS_ITS | Clinical Summary ---
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 Active amLODIPine (NORVASC) 5 MG tablet Take 1 tablet by mouth Daily. Active cetirizine (zyrTEC) 10 MG tablet Take 1 tablet by mouth Daily. Active diphenhydrAMINE (BENADRYL) 25 mg capsule Take 1 capsule by mouth Every 6 (Six) Hours As Needed for Itching. Active methocarbamol (ROBAXIN) 500 MG tablet TAKE 1 TO 2 TABLETS BY MOUTH THREE TIMES DAILY NEEDED 3 Active Ozempic, 2 MG/DOSE, 8 MG/3ML solution pen-injector Inject 2 mg under the skin into the appropriate area as directed 1 (One) Time Per Week. 4 Active famotidine (PEPCID) 20 MG tablet Take 1 tablet by mouth Every 12 (Twelve) Hours. 4 Active DULoxetine (CYMBALTA) 30 MG capsule Take 1 capsule by mouth every night at bedtime. 4 Active celecoxib (CeleBREX) 200 MG capsule Take 1 capsule by mouth Daily. 4 Active Active Problems No known active problems Family History Medical History Relation Name Comments Cancer Father Hypertension Mother Relation Name Status Comments Father Mother Social History Tobacco Use Types Packs/Day Years Used Date Smoking Tobacco: Never Smokeless Tobacco: Never Alcohol Use Standard Drinks/Week Comments No 0 (1 standard drink = 0.6 oz pur e alcohol) Abuse Screen Answer Date Recorded Unsafe at Home or Work/School Not on file Feels Threatened by Someone? Not on file 07/2023 Does Anyone Keep You from Co ntacting Others or Doint Things Outside the Home? Not on file 07/08/2023 Physical Sign of Abuse Present Not on file 1 Housing Stability Answer Date Recorded Current Living Arrangements Not on file 06/28 Potentially Unsafe Housing Conditions Not on rafi e 07/08/2023 Family and Community Support Answer Ozzie e Recorded Help with Day-to-Day Activities Not on file 07/08/2023 Lonely or Isolated Not on file 07/08/2023 Employment Answer Date Recorded Do you want help finding or keeping work or a estrella b? Not on file 07/08/2023 Disabilities Answer Date Recorded Concentrating, Remembering, or Making Decisions Difficulty Not on file 07/08/2023 Doing Errands Independently Difficulty Not on fi le 07/08/2023 Education Answer Date Recorded Help with school or training? Not on file Preferred Language Not on file 07/08/2023 Sex and Gender Information Value Date Recorded Sex Assigned at Not on file Legal Sex Male 10:31 AM EDT Gender Identity Not on file Sexual Orientation Not on file Last Filed Vital Signs Vital Sign Reading Time Taken Comments Blood Pressure 110/80 07/25/2024 3:04 PM EDT Pulse 71 05/21/2020 9:01 AM EDT Temperature - - Respiratory Rate - - Oxygen Saturation 97% 05/21/2020 9:01 AM EDT Inhaled Oxygen Concentration - - Weight 101 kg (223 lb 6.4 oz) 07/25/2024 3:04 PM EDT Height 167.6 cm (5' 6 ) 07/25/2024 3:04 PM EDT Body Mass Index 36.06 07/25/2024 3:04 PM EDT Plan of Treatment Health Maintenance Due Date Last Done Comments TIGRE 2007 COLON CANCER SCREENING 5 YEA R SIGMOIDOSCOPY 2007 COLONOSCOPY 2007 COL[address]AL CANCER SCREENING 2007 CT COLONOGRAPHY 2007 FECAL OCCULT BLOOD TEST 2007 FIT Testing (1 year) 2007 Pneumococcal Vaccine 50+ (1 of 1 - PCV) 01/07/2012 ZOSTER VACCINE (1 of 2) 01/07/2012 ANNUAL PHYSICAL 06/15/2017 HEPATITIS C SCREENING 06/15/2017 COVID-19 Vaccine ( season) 2025 09/27/2021, 03/28/2021, 02/14/2021 INFLUENZA VACCINE 06/28/2025 06/29/2024, , 09/07/2020 TDAP/TD VACCINES (2 - Td or Tdap) 07/13/2031 021 Insurance Care Teams 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
--- OUTSIDE RECORDS SUMMARY | 2025-06-12 10:41 | XMS_ITS | Clinical Summary ---
Author Organization Healthcare Address [address] [place] [address] Care Team Providers Care Town Marshal Name Role Phone Mitch Guzmán MD Primary Care Provider [phone] Social History Tobacco Use Types Packs/Day Years Used Date Smoking Tobacco: Never Sex and Gender Information Value Date Recorded Sex Assigned at Not on file Legal Sex Male 6:08 PM EDT Gender Identity Not on file Sexual Orientation Not on file Last Filed Vital Signs Vital Sign Reading Time Taken Comments Blood Pressure - - Pulse - - Temperature - - Respiratory Rate - - Oxygen Saturation - - Inhaled Oxygen Concentration - - Weight 112 kg (246 lb 0.2 oz) 07/23/2016 2:58 PM EDT Height 167.6 cm (5' 6 ) 07/23/2016 2:58 PM EDT Body Mass Index 39.71 07/23/2016 2:58 PM EDT Plan of Treatment Not on file Care Teams Town Marshal Relationship Specialty Start Date End Date Mitch Guzmán MD [address] [place] [id number] PCP - General 02/08/21
--- NOTE | 2025-06-12 10:42 | XR_ITS ---
FINAL REPORT CLINICAL HISTORY: PAIN FINDINGS: LEFT FEMUR Two views show no evidence of an acute, displaced fracture or dislocation of the visualized bony architecture. The joint spaces appear normal. IMPRESSION: Unremarkable exam. Reviewed, Interpreted and Dictated by Mayra Isaac MD Transcribed by Laura Martinez Authenticated and [facility]
--- NOTE | 2025-06-12 10:42 | XR_ITS ---
FINAL REPORT CLINICAL HISTORY: PAIN FINDINGS: LEFT HIP 2 views of the left hip are obtained. There is no acute fracture or dislocation. Visualized joint spaces are normally aligned. There are mild degenerative changes. There is no acute soft tissue abnormality. IMPRESSION: No acute bony abnormality. Reviewed, Interpreted and Dictated by Mayra Isaac MD Transcribed by Laura Martinez Authenticated and [facility]
== END 2025-06-12 23:59 | disposition home or self-care (01) ==
LOC: RAD 10:37
PROVIDERS: PCP Internal Medicine Adolescent Medicine; Visit Provider Internal Medicine Adolescent Medicine
DX: M25.552 Pain in left hip (principal)
CPT/HCPCS: 73502; 73552